=== PATIENT | female | born 1940 | race Caucasian/White ===

== ENCOUNTER 2020-02-14 11:45 | Emergency (ER) | payer MEDICARE, OTHER, SELFPAY ==
[2020-02-14 11:58] VITALS: BP 115/98; PULSE 100; RESP 20; TEMP 37.4
--- NOTE | 2020-02-14 12:14 | ED.EAR ---
HPI - Ear Problem General Chief complaint: Ear Stated complaint: ear pain Time Seen by Provider: 02/14/20 12:14 Source: patient and RN notes reviewed Mode of arrival: ambulatory Limitations: no limitations History of Present Illness HPI Narrative: 79 old female presents with 1 day history of ear pain. Reports she woke this morning with left ear pain. Reports nasal congestion, mild rhinorrhea. Denies fever, cough, shortness of breath. Reports history of having surgery on her left eardrum with skin graft. MD Complaint: ear pain Location: left ear Related Data Allergies Allergy/AdvReac Type Severity Reaction Status Date / Time amoxicillin [From Augmentin] Allergy Rash Verified 02/14/20 12:04 clavulanic acid Allergy Rash Verified 02/14/20 12:04 [From Augmentin] Penicillins Allergy Rash Verified 02/14/20 12:04 Sulfa (Sulfonamide Allergy Rash Verified 02/14/20 12:04 Antibiotics) Review of Systems Review of Systems: Narrative: CONSTITUTIONAL: Denies malaise, chills, sweats, or fever. EYES: Denies visual changes, redness, or discharge. ENT: Reports rhinorrhea, congestion, left otalgia. Scratchy throat. Denies sinus pain and sore throat. CARDIOVASCULAR: Denies chest pain, palpitations, or edema. RESPIRATORY: Denies cough or dyspnea. GASTROINTESTINAL: Denies abdominal pain, nausea, vomiting, diarrhea SKIN: Denies rash or itching. MUSCULOSKELETAL: Denies myalgia. NEUROLOGIC: Denies headache. All systems reviewed & are unremarkable except as noted in HPI and below PMFSH Social History Social History Gender identity (if verbalized by the patient): Female Comments At time of signature, agree with nursing past medical, surgical, social and family history. There is no relevant family history pertinent to the presenting complaint Exam Narrative: Exam Narrative: GENERAL: Well-appearing, well-nourished, and in no acute distress. HEAD: Normocephalic EYES: PERRLA, conjunctivae clear ENT: Nares clear, left turbinates edematous and erythematous, clear discharge. Mucous membranes moist. Right TM pearly melgar with dull light reflex, left TM erythematous, bulging, scarred; no tragal tenderness. Oropharynx not erythematous without lesions. Tonsils not enlarged and without exudate, no drooling, no hoarseness, no trismus, uvula midline. NECK: Supple. No lymphadenopathy CHEST: Clear to auscultation, breath sounds equal. No wheezing, rhonchi, rales, or stridor. No respiratory distress, speaks in full sentences. HEART: Regular rate and rhythm. No murmur heard. SKIN: Warm, dry, no rash. NEURO: Alert and oriented x3. PSYCH: Normal mood and affect Course Course Emergency Course: Patient is aware of diagnosis, understands and agrees to treatment plan. Anticipatory guidance given. Patient agrees to follow-up as directed and is aware of reasons to seek care at the emergency department. Portions of this record may have been created with voice recognition software Vital Signs Vital signs: Vital Signs Temperature 99.3 F 02/14/20 11:58 Pulse Rate 100 02/14/20 11:58 Respiratory Rate 02/14/20 11:58 Blood Pressure 115/98 H 02/14/20 11:58 Temperature 99.3 F 02/14/20 11:58 Pulse Rate 100 02/14/20 11:58 Respiratory Rate 02/14/20 11:58 Blood Pressure 115/98 H 02/14/20 11:58 Reviewed. Medical Decision Making MDM Narrative Medical decision making narrative: Differential diagnosis considered: Strep pharyngitis, allergic rhinitis, upper respiratory tract infection, sinusitis, rhinosinusitis, nasopharyngitis. viral pharyngitis, otitis media, otitis externa, pneumonia, bronchitis, viral cough syndrome, viral syndrome, and influenza. Exam findings show no acute concerns or changes; patient is non-toxic appearing and is in no distress. Patient is appropriate for outpatient treatment and follow-up. Vital Signs Vital Signs: Vital Signs Temperature 99.3 F 02/14/20 11:58 Pulse Rate 100 02/14/20 11:58 Respir
== END 2020-02-14 12:29 | disposition home or self-care (01) ==
PROVIDERS: Emergency Provider Nurse Practitioner
DX: H66.002 Acute suppurative otitis media without spontaneous rupture of ear drum, left ear (principal); J01.90 Acute sinusitis, unspecified; I11.0 Hypertensive heart disease with heart failure; I50.9 Heart failure, unspecified; J44.9 Chronic obstructive pulmonary disease, unspecified; M06.9 Rheumatoid arthritis, unspecified
CPT/HCPCS: 99213; G0463